=== PATIENT | female | born 1985 | race Caucasian/White ===

== ENCOUNTER 2018-06-14 14:12 | Emergency (ER) | payer MEDICAID ==
[~2018-06-14] VITALS: Ht 160 cm; Wt 57.6 kg
[2018-06-14 14:23] VITALS: Ht 160 cm; Wt 57.6 kg
[2018-06-14 16:19] VITALS: BP 135/70
== END 2018-06-14 16:19 | disposition home or self-care (01) ==
LOC: ED 14:12
DX: S90.862A Insect bite (nonvenomous), left foot, initial encounter (principal); L03.116 Cellulitis of left lower limb; W57.XXXA Bitten or stung by nonvenomous insect and other nonvenomous arthropods, initial encounter; Y93.89 Activity, other specified; Y92.89 Other specified places as the place of occurrence of the external cause; Y99.8 Other external cause status
CPT/HCPCS: J0690

== ENCOUNTER 2019-07-04 23:38 | Emergency (ER) | payer MEDICAID ==
[~2019-07-04] VITALS: Ht 157.5 cm; Wt 59.4 kg
[2019-07-04 23:47] VITALS: Ht 157.5 cm; Wt 59.4 kg
[2019-07-05 03:30] LABS: BASOPHIL % 1.6 % (0-2); PLATELET COUNT 275 x10^3mcL (130-400); RED CELL DISTRIBUTION WIDTH 13.2 % (11.5-14.5)
[2019-07-05 04:05] LABS: CALCIUM 9.4 mg/dL (8.5-10.1); CARBON DIOXIDE 28.4 mmol/L (21-32); CHLORIDE SERUM 104 mmol/L (98-107); CREATININE SERUM 0.6 mg/dL (0.6-1.0); GFR1 > 60 mL/min; GLUCOSE SERUM 87 mg/dL (74-106); POTASSIUM SERUM 3.7 mmol/L (3.5-5.1); SODIUM SERUM 140 mmol/L (136-145)
[2019-07-05 04:07] LABS: ALKALINE PHOSPHATASE 107 U/L (46-116); ALT/SGPT 33 U/L (14-59); AMYLASE 36 U/L (25-115); AST/SGOT 21 U/L (15-37); BILIRUBIN TOTAL 0.16 mg/dL (0.20-1.00); LIPASE 133 IU/L (73-393); TOTAL PROTEIN, SERUM 7.8 g/dL (6.4-8.2)
[2019-07-05 05:36] VITALS: BP 118/83
== END 2019-07-05 05:36 | disposition home or self-care (01) ==
LOC: ED 23:38
PROVIDERS: Emergency Medicine
DX: S80.861A Insect bite (nonvenomous), right lower leg, initial encounter (principal); W57.XXXA Bitten or stung by nonvenomous insect and other nonvenomous arthropods, initial encounter; Y93.89 Activity, other specified; Y92.89 Other specified places as the place of occurrence of the external cause; Y99.8 Other external cause status
CPT/HCPCS: J2270; J7030